=== PATIENT | male | born 1950 | race Caucasian/White ===

== ENCOUNTER 2025-05-14 14:25 | Emergency (ER) | payer MEDICARE, BC ==
[~2025-05-14] VITALS: Ht 180.3 cm; Wt 89.2 kg
[2025-05-14] MEDS ORDERED: DOXYCYCLINE HY100 MG PO (14:40)
[2025-05-14] MEDS: LIDOCAINE HCL 1% LOCAL INJ 20 ML VIAL INJ STA (14:46)
[2025-05-14] MEDS: BACITRACIN ZINC 0.9GM TP ONE (14:46)
[2025-05-14] MEDS: DOXYCYCLINE HYCLATE TABLET 100 MG TAB PO STA (14:46)
[2025-05-14 15:28] VITALS: PULSE 80; RESP 17; TEMP 98.9; O2SAT 99
== END 2025-05-14 15:29 | disposition home or self-care (01) ==
LOC: FSED 14:39
DX: S01.01XA Laceration without foreign body of scalp, initial encounter (principal); W22.09XA Striking against other stationary object, initial encounter; Y92.89 Other specified places as the place of occurrence of the external cause
CPT/HCPCS: 12001; 99284; J2003

== ENCOUNTER 2025-05-26 08:59 | Emergency (ER) | payer MEDICARE, BC ==
[~2025-05-26] VITALS: Ht 180.3 cm; Wt 86.2 kg
[~2025-05-26 08:59] MED LIST: DOXYCYCLINE HY100 MG PO
[2025-05-26 09:03] VITALS: PULSE 82; RESP 16; TEMP 98.1; O2SAT 98
== END 2025-05-26 09:09 | disposition home or self-care (01) ==
LOC: FSED 09:03
DX: S01.01XD Laceration without foreign body of scalp, subsequent encounter (principal); Z48.02 Encounter for removal of sutures
CPT/HCPCS: S0630